=== PATIENT | male | born 1965 | race Caucasian/White ===

== ENCOUNTER → 2017-03-19 | Outpatient (CLI) | payer MEDICAID ==
--- NOTE | 2017-03-19 13:42 | RADIOLOGY REPORT (SQ) ---
EXAM DESCRIPTION: CERV SP 4 OR 5 VIEWS COMPLETED DATE/TIME: 03/19/2017 1:29 pm REASON FOR STUDY: POST SURGERY M54.2 CERVICALGIA COMPARISON: None. NUMBER OF VIEWS: Five views. TECHNIQUE: AP, lateral, obliques and odontoid radiographic images acquired of the cervical spine. LIMITATIONS: None. FINDINGS: MINERALIZATION: Normal. ALIGNMENT: There is very mild anterolisthesis of C5 over C6, and C6 over C7 likely due to facet arthr opathy. Swimmer's view shows normal alignment of C7 and T1. VERTEBRAE: Vertebral bodies of normal height. DISCS: Mild disc space loss of height at C5-6 and C6-7 FORAMINA: There is multilevel facet arthropathy causing moderate left C2-3, high-grade left C3-4 and C4-5 foraminal narrowing. There is mild facet arthropathy causing mild to moderate C4-5 right-sided foraminal narrowing. LATERAL AND POSTERIOR ELEMENTS: Multilevel facet arthropathy. Lateral masses and spinous processes w ithout significant findings. HARDWARE: None in the spine. SOFT TISSUES: No masses or calcifications. Lung apices clear. OTHER: No other significant finding. IMPRESSION: Degenerative changes with facet arthropathy an multilevel foraminal narrowing as above. TECHNICAL DOCUMENTATION: JOB ID: [id number] [employer]- All Rights Reserved
== END ==
LOC: RAD 12:48
PROVIDERS: ATTEND Physician Assistant
DX: M54.2 Cervicalgia (principal)
CPT/HCPCS: 72050

== ENCOUNTER 2018-12-06 06:37 | Day surgery (SDC) | payer MEDICAID ==
[~2018-12-06 06:37] MED LIST: CEFAZOLIN 2 GM/D5W RTU 2 GM/50 ML RTUPB IV ONE; CEFAZOLIN 2 GM/D5W RTU 2 GM/50 ML RTUPB IV PRN
[2018-12-06] MEDS ORDERED: ALBUTEROL SULFATE 0.083% NEB 2.5 MG/3 ML AMPUL NEB ONE (07:45)
--- NOTE | 2018-12-06 07:51 | EKG REPORT ---
SEVERITY:- BORDERLINE ECG - SINUS RHYTHM PROBABLE LEFT ATRIAL ABNORMALITY BORDERLINE LEFT AXIS DEVIATION : Confirmed by: Raz Jameson MD 06-Dec-2018 07:51:16
[2018-12-06 08:07] LABS: HEMATOCRIT 47.7 % (37.9-51.0); HEMOGLOBIN 16.6 g/dL (13.5-17.0); MEAN CORPUSCULAR HEMOGLOBIN 31.7 pg (27.0-33.4); MEAN CORPUSCULAR HGB CONC 34.9 g/dL (32.0-36.0); MEAN CORPUSCULAR VOLUME 91 fl (80-97); PLATELET COUNT 186 10^3/uL (150-450); RED BLOOD COUNT 5.24 10^6/uL (4.35-5.55); RED CELL DISTRIBUTION WIDTH 13.2 % (11.5-14.0)
[2018-12-06] MEDS ORDERED: MIDAZOLAM 2 MG/2 ML INJ ONE ×2 (08:19→08:59)
[2018-12-06] MEDS ORDERED: COCAINE HCL 4% TOPICAL SOLN 4 ML ONE (08:21)
[2018-12-06] MEDS ORDERED: TRIAMCINOLONE ACETONIDE INJ 40 MG/1 ML VIAL ONE (08:21)
[2018-12-06] MEDS ORDERED: OXYMETAZOLINE HCL 0.05% NASAL SPRAY 15 ML BOTTLE ONE (08:21)
[2018-12-06 08:25] LABS: ANION GAP 10 (5-19); BLOOD UREA NITROGEN 16 mg/dL (7-20); CALCIUM 9.8 mg/dL (8.4-10.2); CARBON DIOXIDE 21 mmol/L (22-30); CHLORIDE 107 mmol/L (98-107); GLUCOSE 99 mg/dL (75-110); POTASSIUM 4.9 mmol/L (3.6-5.0); SODIUM 137.9 mmol/L (137-145)
[2018-12-06] MEDS ORDERED: MIDAZOLAM 2 MG/2 ML INJ IV ONE (08:30)
[2018-12-06] MEDS ORDERED: FENTANYL CITRATE INJ/PF 100 MCG/2 ML AMPUL ONE ×2 (08:59→10:56)
[2018-12-06] MEDS ORDERED: DEXAMETHASONE SOD PHOSPHATE INJ 4 MG/1 ML VIAL ONE ×2 (09:00→12:11)
[2018-12-06] MEDS ORDERED: ONDANSETRON HCL INJ/PF 4 MG/2 ML SDV ONE (09:00)
[2018-12-06] MEDS ORDERED: ACETAMINOPHEN 1,000 MG/100 ML RTUPB IV ONE (09:00)
[2018-12-06] MEDS ORDERED: PROPOFOL INJ 200 MG/20 ML VIAL IV ONE (09:00)
[2018-12-06] MEDS ORDERED: MORPHINE SULFATE 10 MG/ML INJ IV PRN (09:13)
[2018-12-06] MEDS ORDERED: MEPERIDINE HCL/PF INJ 25 MG/1 ML DISP.SYRIN IV PRN (09:13)
[2018-12-06] MEDS ORDERED: PROMETHAZINE HCL INJ 25 MG/1 ML VIAL IV PRN ×2 (09:13)
[2018-12-06] MEDS ORDERED: DIPHENHYDRAMINE HCL 50 MG/ML VIAL IV PRN (09:13)
[2018-12-06] MEDS ORDERED: FENTANYL CITRATE INJ/PF 100 MCG/2 ML AMPUL IV PRN ×3 (09:13)
[2018-12-06] MEDS ORDERED: DEXAMETHASONE SOD PHOS INJ 10 MG/1 ML VIAL ONE (10:31)
--- NOTE | 2018-12-06 11:13 | OPERATIVE REPORT E ---
Operative Report NAME: KANWAL HARRIS : 1965 AGE: 53Y DATE OF SURGERY: 12/06/2018 ROOM: HISTORY: This 53-year-old male with a history of dystonia was evaluated in the otolaryngology head and neck surgery clinic. On flexible fiberoptic exam he was noted to have a lesion involving his right true vocal cord. He presents today for a biopsy of that right true vocal cord lesion. Informed consent was obtained from the patient. PREOPERATIVE DIAGNOSIS: Right true vocal cord lesion. POSTOPERATIVE DIAGNOSIS: Right true vocal cord lesion. PROCEDURE: Micro direct laryngoscopy with biopsy of the right true vocal cord lesion. SURGEON: DILIP MENSAH MD ANESTHESIA: General via endotracheal intubation. DESCRIPTION OF PROCEDURE: After receiving informed consent from the patient he was taken to the operating room and placed supine on the operating table. After successful induction and intubation by Anesthesia, the patient was turned 90 degrees. Next, a head drape was placed. The head was placed into the sniffing position and a mouth guard was placed over the upper dentition. Next, a Marisa laryngoscope was inserted into the oral cavity down into the laryngeal inlet. The laryngoscope was then suspended. The microscope was brought into the field and the right true vocal cord mass was identified. The mass extended from just posterior to the anterior commissure posterior to the vocal process. It appeared to involve the ventricle but did not extend subglottically. The central portion appeared ulcerative and firm. The anterior extent of the lesion extended to the anterior one-fourth of that right true vocal cord. The left true vocal cord appeared normal without evidence of any masses or lesions. Next, multiple biopsies were taken in multiple spots along the entirety of the lesion. A biopsy was also taken in the anterior commissure. Pledgets soaked with 4% cocaine were placed into the lesion prior to the biopsies and immediately after the biopsies. The biopsies will be sent to pathology for permanent analysis. Next, the patient was then taken out of suspension and the laryngoscope was removed from the patient atraumatically. The patient was then given back to Anesthesia who successfully extubated the patient without any complications. The estimated blood loss was minimal, fluids about 300 mL crystalloid. The patient was then transferred to the postanesthesia care unit in stable condition, spontaneous respirations, no complications. DICTATING PHYSICIAN: DILIP MENSAH M.D. [id number] PHY#: [id number] ID: [id number] JOB#: [id number] ACCT: [id number] cc:DILIP MENSAH MD >
[2018-12-06] MEDS ORDERED: SUCCINYLCHOLINE CHLORIDE INJ 200 MG/10 ML VIAL ONE (12:11)
[2018-12-06] MEDS ORDERED: ROCURONIUM BROMIDE INJ 50 MG/5 ML VIAL IV ONE (12:11)
[2018-12-06] MEDS ORDERED: HYDROCODONE/ACETAMINOPHEN 10-325 MG TABLET PO PRN (12:19)
[2018-12-06] MEDS ORDERED: ONDANSETRON HCL INJ/PF 4 MG/2 ML SDV IV PRN (12:21)
[2018-12-06] MEDS ORDERED: IPRATROPIUM/ALBUTEROL 0.5-2.5 MG/3 ML AMPUL NEB PRN (12:21)
[2018-12-06 12:33] VITALS: BP 137/74
== END 2018-12-06 12:30 | disposition home or self-care (01) ==
LOC: OROUT 06:37
PROVIDERS: ATTEND Otolaryngology
DX: J38.3 Other diseases of vocal cords (principal); Z79.899 Other long term (current) drug therapy; K21.9 Gastro-esophageal reflux disease without esophagitis; I10 Essential (primary) hypertension; R49.0 Dysphonia; C32.0 Malignant neoplasm of glottis
CPT/HCPCS: 31535; 36415; 85027; 80048; 88305 ×2; 93005; 93010; 94640; J2250; J3490 ×2; J1100 ×2; J3010; J0330; J2405; J2704; J0690; J0131; 320

== ENCOUNTER → 2019-08-08 | Outpatient (CLI) | payer MEDICAID ==
--- NOTE | 2019-08-08 11:51 | RADIOLOGY REPORT (SQ) ---
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 Reconstructed coronal and sagittal MPR images reviewed. All images stored on PACS. All CT scanners at this facility use dose modulation, iterative reconstruction, and/or weight based d osing when appropriate to reduce radiation dose to as low as reasonably achievable (ALARA). [facility]: Dose Right [facility]: CareDose [facility]: Dose Right [facility]: Teradose 4D [facility]: MalibuIQ CONTRAST TYPE AND DOSE: 75 mL of IV Omnipaque 350- low osmolar. RENAL FUNCTION: Creatinine 1.2 RADIATION DOSE: 24.8 mGy. LIMITATIONS: None. FINDINGS: SKULL BASE: Intact. MAJOR SALIVARY GLANDS: No solid or cystic masses. No inflammatory changes. LYMPHADENOPATHY: No adenopathy. MUCOSAL MASSES OR ASYMMETRY: No mucosal masses or asymmetry. LARYNX/CORDS: No abnormal findings. Primary laryngeal mucosal nodule is not identified. Patient is post therapy for laryngeal cancer. VASCULAR STRUCTURES: The major vessels are patent. 50% diameter narrowing left proximal ICA at the c arotid bifurcation from calcific plaque. LUNG APICES: 1 cm nodule right upper lobe axial image 99-100, new compared to previous CT soft tissue neck exams, dedicated CT chest without contrast is recommended for followup BONES: High-grade left neural foraminal narrowing at C2-3 and C3-4 THYROID: Normal size. No masses. PARANASAL SINUSES: Clear. OTHER: Mastoid air cells. Middle ear cavities are clear IMPRESSION: No neck masses or adenopathy. Incidental 1 cm nodule right upper lobe for which dedicated CT chest without contrast is recommended for followup TECHNICAL DOCUMENTATION: JOB ID: [id number] Quality ID # [id number]: Final reports with documentation of one or more dose reduction techniques (e.g., Au tomated exposure control, adjustment of the mA and/or kV according to patient size, use of iterative reconstruction technique) 2010 [employer]- All Rights Reserved Reading location - IP[facility]workstation name: [facility]
== END ==
LOC: RAD 10:04
PROVIDERS: ATTEND Otolaryngology
DX: C32.9 Malignant neoplasm of larynx, unspecified (principal); R91.1 Solitary pulmonary nodule
CPT/HCPCS: 70491; 82565

== ENCOUNTER 2019-08-13 07:02 | Day surgery (SDC) | payer MEDICAID ==
[~2019-08-13 07:02] MED LIST changes: -CEFAZOLIN 2 GM/D5W RTU 2 GM/50 ML RTUPB IV ONE; -CEFAZOLIN 2 GM/D5W RTU 2 GM/50 ML RTUPB IV PRN; +CEFAZOLIN SODIUM 2 GM in DEXTROSE 5%-WATER 100 ML IV PRN
[2019-08-13] MEDS ORDERED: MIDAZOLAM 2 MG/2 ML INJ ONE (08:59)
[2019-08-13] MEDS ORDERED: FENTANYL CITRATE INJ/PF 100 MCG/2 ML AMPUL ONE (08:59)
[2019-08-13] MEDS ORDERED: PROPOFOL INJ 200 MG/20 ML VIAL IV ONE (09:00)
[2019-08-13] MEDS ORDERED: COCAINE HCL 4% TOPICAL SOLN 4 ML ONE (09:13)
[2019-08-13] MEDS ORDERED: PROMETHAZINE HCL INJ 25 MG/1 ML VIAL IV PRN ×2 (09:43)
[2019-08-13] MEDS ORDERED: OXYCODONE-ACETAMINOPHEN 5-325 MG TABLET PO PRN ×3 (09:43→10:55)
[2019-08-13] MEDS ORDERED: DIPHENHYDRAMINE HCL 50 MG/ML VIAL IV PRN (09:43)
[2019-08-13] MEDS ORDERED: MEPERIDINE HCL/PF INJ 25 MG/1 ML DISP.SYRIN IV PRN (09:43)
[2019-08-13] MEDS ORDERED: FENTANYL CITRATE INJ/PF 100 MCG/2 ML AMPUL IV PRN ×3 (09:43)
[2019-08-13] MEDS: FENTANYL CITRATE INJ/PF 100 MCG/2 ML AMPUL ONE ×2 (10:45→10:50)
[2019-08-13] MEDS ORDERED: DEXAMETHASONE SOD PHOS INJ 10 MG/1 ML VIAL ONE (10:47)
--- NOTE | 2019-08-13 10:55 | Operative Report ---
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 Patient received radiation therapy and the course was completed as in February 2019. He presents complaining of otalgia and dysphonia. 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 Patient presents today for a MicroDirect laryngoscopy with biopsy. 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 Micro Direct Laryngoscopy 2. Biopsy right true vocal cord and bilateral false vocal cords Surgeon: Gera Senior MD, FACS, FCCP Anesethia: MARICRUZ Description of the procedure: After receiving informed consent, the patient was brought to the operating room and placed supine on the operating room table. After successful induction and intubation by anesthesia, the operating room table was turned 90. A head rape was placed. The patient was placed in a sniffing position. A mouthguard was placed to protect the dentition. An operating laryngoscope was placed atraumatically into the laryngeal inlet. The laryngoscope was then placed into suspension. The microscope was brought into the field and the larynx was visualized. Post radiation changes were noted involving the entire endolarynx. 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 There is also leukoplakia involving the right and left false vocal cords. Cottonoids soaked in 4% cocaine were placed into the laryngeal inlet to cover the vocal cords, prior to initiation of the procedure. Using cup forceps and scissors the leukoplakia involving the right true vocal cord, right false vocal cord and left false vocal cord were biopsied. A cottonoid soaked in 4% cocaine was placed over the excision site. Hemostasis was obtained. The patient was taken out of suspension and the laryngoscope removed. The patient was then given back to anesthesia who successfully extubated the patient without any complications. Estimated blood loss: Minimal Fluids: 500 mL The patient tolerated the procedure well without any complications. The patient was then transported to the post anesthesia care unit in stable condition with spontaneous respirations.
[2019-08-13] MEDS ORDERED: OXYCODONE HCL IR 5 MG TABLET PO PRN (10:56)
[2019-08-13] MEDS ORDERED: ONDANSETRON HCL INJ/PF 4 MG/2 ML SDV IV PRN (10:58)
[2019-08-13] MEDS ORDERED: OXYCODONE-ACETAMINOPHEN 5-325 MG TABLET ONE (11:23)
[2019-08-13] MEDS ORDERED: OXYCODONE HCL IR 5 MG TABLET ONE (11:23)
[2019-08-13 12:41] VITALS: BP 128/79
[2019-08-13] MEDS ORDERED: LIDOCAINE 2% INJ-PF (20 MG/ML) 2 ML AMPUL ONE (12:53)
[2019-08-13] MEDS ORDERED: PHENYLEPHRINE HCL INJ/PF 10 MG/1 ML SDV ONE (12:53)
[2019-08-13] MEDS ORDERED: DEXAMETHASONE SOD PHOSPHATE INJ 4 MG/1 ML VIAL ONE (12:53)
[2019-08-13] MEDS ORDERED: ONDANSETRON HCL INJ/PF 4 MG/2 ML SDV ONE (12:53)
== END 2019-08-13 12:30 | disposition home or self-care (01) ==
LOC: OROUT 07:02
PROVIDERS: ATTEND Otolaryngology
DX: C32.0 Malignant neoplasm of glottis (principal); R49.0 Dysphonia; J38.3 Other diseases of vocal cords; I10 Essential (primary) hypertension; Z79.899 Other long term (current) drug therapy
CPT/HCPCS: 88305 ×2; 31535; J2250; J0690; J3490 ×3; J1100 ×2; J3010; J2370; J2405; J7060; J2704; 320